=== PATIENT | female | born 1955 | race Caucasian/White ===

== ENCOUNTER → 2016-08-09 | Outpatient (CLI) | payer OTHER ==
[~2016-08-09] MED LIST: BUDE10.2 IH; DULO60CA6 PO; FURO40TA4 PO; GABA-488 PO; LEVO175T5 PO; MELO15TA39 PO; METF1000 PO; METO100T2 PO; POTA10TA36 PO; RT-ALBUINH IH; SIMV20TA3 PO
[2016-08-09 11:49] LABS: ALBUMIN 4.3 G/DL (3.2-4.5); BILIRUBIN,DIRECT 0.4 MG/DL (0.0-0.3); BILIRUBIN,INDIRECT 0.4 MG/DL; BILIRUBIN,TOTAL 0.8 MG/DL (0.1-1.0); TOTAL PROTEIN 7.7 G/DL (6.4-8.2)
== END ==
LOC: LAB 11:07
PROVIDERS: ATTEND Physician Assistant
DX: E78.2 Mixed hyperlipidemia (principal)
CPT/HCPCS: 36415; 80061; 80076